=== PATIENT | female | born 1990 | race Caucasian/White ===

== ENCOUNTER 2017-05-07 06:14 | Inpatient (IN) ==
[2017-05-07] MEDS ORDERED: ACETAMINOPHEN 325 MG TABLET PO PRN (07:03)
[2017-05-07] MEDS ORDERED: BUTORPHANOL 2 MG/ML VIAL IV PRN (07:03)
[2017-05-07] MEDS ORDERED: ONDANSETRON 4 MG/2 ML VIAL IV PRN (07:03)
[2017-05-07] MEDS ORDERED: MEPERIDINE 50 MG/1 ML VIAL IV PRN (07:03)
[2017-05-07] MEDS ORDERED: OXYTOCIN/LR 20 UNIT/1,000 ML BAG IV SCH (07:30)
[2017-05-07] MEDS ORDERED: LACTATED RINGERS 1,000 ML IV SCH (07:30)
[2017-05-07 07:40] LABS: Basophils % 0.1 % (0.0-0.8); Eosinophils # 0.1 10*3/uL (0.0-0.87); Eosinophils % 0.5 % (0.00-10.9); Hematocrit 37.1 VOL% (35.7-47.0); Hemoglobin 13.3 GM/DL (12.0-16.0); Immature Granulocytes % 0.8 %; Immature Granulocytes Absolute 0.09 #; Lymphocytes # 1.9 10*3/uL (1.4-4.0); Lymphocytes % 16.7 % (21.3-54.2); Mean Corpuscular HGB Conc 35.8 GM/DL (32-36); Mean Corpuscular Hemoglobin 31 PG (27-34); Mean Corpuscular Volume 86.9 FL (87-102); Mean Platelet Volume 11.5 FL (9.6-12.0); Monocytes # 0.6 10*3/uL (0.11-0.8); Monocytes % 5.2 % (1.7-12.7); Neutrophils # 8.7 10*3/uL (1.4-7.4); Neutrophils % 76.7 % (38.7-73.9); Platelet Count 151 T/CUMM (130-400); Red Blood Count 4.27 MC/CUMM (3.8-5.5); Red Cell Distribution Width 13.8 % (9.3-17.3); White Blood Count 11.3 T/CUMM (4-12)
[2017-05-07 08:11] LABS: Alanine Aminotransferase 16 U/L (13-56); Albumin 2.5 G/DL (3.4-5.0); Alkaline Phosphatase 184 U/L (45-117); Aspartate Amino Transferase 15 U/L (0-37); Bilirubin,Total < 0.39 MG/DL (0.2-1.0); Blood Urea Nitrogen 8 MG/DL (7-18); Calcium 8.8 MG/DL (8.5-10.1); Total Protein 5.5 G/DL (6.4-8.3)
[2017-05-07 08:12] LABS: Glucose 77 MG/DL (74-106); Osmolality,Calculated 273.5 MOS/KG (273-304); Potassium 3.6 MMOL/L (3.5-5.1); Sodium 139 MMOL/L (136-145)
[2017-05-07] MEDS ORDERED: ePHEDrine 50 MG/ML AMP IV PRN (08:18)
[2017-05-07] MEDS ORDERED: FAMOTIDINE 20 MG/2 ML VIAL IV ONE (08:18)
[2017-05-07] MEDS ORDERED: LACTATED RINGERS 1,000 ML IV ONE (08:18)
[2017-05-07] MEDS ORDERED: CITRIC ACID/SODIUM CITRATE 30 ML UDCUP PO ONE (08:18)
[2017-05-07] MEDS ORDERED: hydrOXYzine HCL 25 MG/1 ML VIAL IM PRN (08:19)
[2017-05-07] MEDS ORDERED: PROMETHAZINE 25 MG/1 ML VIAL IM ONE (08:19)
[2017-05-07] MEDS ORDERED: fentaNYL 2 MCG/ROPIV 0.2% EPID 150 ML EPIDURAL SCH (08:19)
[2017-05-07] MEDS ORDERED: diphenhydrAMINE 50 MG/1 ML VIAL IV PRN ×2 (08:19)
[2017-05-07 10:42] LABS: Apearance,Urine CLEAR (Clear); Bilirubin,Urine Negative (Negative); Blood, Urine Negative (Negative); Glucose,Urine (UA) Negative (Negative); Ketones,Urine Negative (Negative); Mucus,Urine Occasional /LPF (Occasional); Nitrite,Urine Negative (Negative); Protein,Urine Negative; RBC,Urine <1 /HPF (0-4); Squamous Epithelial Cell,Urine Occasional /HPF (0-10); Urine Color Yellow (Yellow); Urine Specific Gravity 1.009 (1.001-1.035); Urine Urobilinogen < 2.0 EU/DL (0.2-1.0); WBC,Urine <1 /HPF (0-6)
[2017-05-07] MEDS ORDERED: miSOPROStol 200 MCG TABLET ONE (11:16)
[2017-05-07] MEDS ORDERED: LIDOCAINE 1% 50 ML VIAL ONE (11:16)
[2017-05-07] MEDS ORDERED: METHYLERGONOVINE 0.2 MG/1 ML AMP ONE (11:16)
--- NOTE | 2017-05-07 12:29 | Operative Note ---
Date of procedure: 05/07/17 Pre-op diagnosis: Labor Induction; 39 weeks gestation Post-op diagnosis: other (Vaginal Delivery; 39 weeks gestation) Procedure: Complete at 1110 and pushing began with UCs. viable female infant, MARYLOU position @ 1136, epidural anesthesia. Loose nuchal cord, easily reduced on perineum. Spontaneous cry and resp. Mouth and nose bulb suctioned. Cord clamped and cut. Infant to mother's abd. Nursery RN present attending . Spontaneous placental delivery @ 1138. Pitocin infusion increased to bolus rate. Placenta inspected with 3 vessel cord seen, slight odor observed. To pathology for inspection. Perineum inspected. Vaginal pack placed and 2nd degree left vaginal laceration extending to posterior vaginal introitus and to right side, repaired with 2/0 chromic suture, good hemostasis. 1st degree periurethral laceration repaired with 3/0 chromic suture, good hemostasis. Left periurethral abrasion, no repair required. Vag pack removed, no clots noted. Fundus firm Q U-2, small amount lochis rubra. Mother and baby stable. Apgars 8/9. Anesthesia: epidural Surgeon / Physician: Maricruz Olivo Estimated blood loss: other (200mL) Specimens: other (Placenta to pathology) Condition: stable Disposition: floor Results - Labs CBC & BMP: 05/07/17 07:14 05/07/17 07:14 Lab Results: I have reviewed the past 24 hour labs Discharge Plan - Discharge Medications No Action Multivitamin () [ Vitamin] 1 tablet PO DAILY - Follow Up or Referral - Forms/Instructions
[2017-05-07] MEDS ORDERED: OXYTOCIN/LR 20 UNIT/1,000 ML BAG IV ONE (14:14)
[2017-05-07] MEDS ORDERED: IBUPROFEN 800 MG TABLET PO PRN (15:11)
[2017-05-07] MEDS ORDERED: oxyCODONE/ACETAMINOPHEN 5-325 MG TABLET PO PRN ×2 (15:11)
--- NOTE | 2017-05-07 15:45 | Anesthesia Post-Op ---
Anesthesia Post OP - Post Ansesthetic Evaluation Patient seen in post op: Yes Resp: within normal limits CV: within normal limits Mental: within normal limits Temp: within normal limits Gles-Go-Phhsswfjk: within normal limits Nausea and Vomiting: within normal limits Pain: within normal limits
[2017-05-07] MEDS ORDERED: BENZOCAINE 20%/MENTHOL 0.5% SPRAY 56 GM CAN TOP PRN (20:25)
[2017-05-07] MEDS: DOCUSATE SODIUM 100 MG CAPSULE PO SCH (20:35)
[2017-05-08 06:26] LABS: Basophils % 0.1 % (0.0-0.8); Eosinophils # 0.1 10*3/uL (0.0-0.87); Eosinophils % 0.7 % (0.00-10.9); Hematocrit 37.6 VOL% (35.7-47.0); Hemoglobin 13.3 GM/DL (12.0-16.0); Immature Granulocytes % 0.5 %; Immature Granulocytes Absolute 0.06 #; Lymphocytes # 2.4 10*3/uL (1.4-4.0); Mean Corpuscular HGB Conc 35.4 GM/DL (32-36); Mean Corpuscular Hemoglobin 31 PG (27-34); Mean Corpuscular Volume 87.2 FL (87-102); Mean Platelet Volume 11.3 FL (9.6-12.0); Monocytes # 0.5 10*3/uL (0.11-0.8); Monocytes % 3.9 % (1.7-12.7); Neutrophils # 9.5 10*3/uL (1.4-7.4); Neutrophils % 75.8 % (38.7-73.9); Platelet Count 157 T/CUMM (130-400); Red Blood Count 4.31 MC/CUMM (3.8-5.5); Red Cell Distribution Width 13.8 % (9.3-17.3); White Blood Count 12.5 T/CUMM (4-12)
--- NOTE | 2017-05-08 07:47 | History and Physical Update ---
History and Physical Update - History and Physical H&P was reviewed, the patient examined and there: are no changes in the patients condition since last H&P was completed. - Dictation Physical: refer to scanned H&P - Physical Exam Mental Status: alert and oriented Heart: regular rate and rhythm Lung: clear to auscultation Abdomen: within normal limits Vitals: within normal limits History and Physical Changes: 39 wks for induction. No complications.
--- NOTE | 2017-05-08 07:49 | OB/GYN Progress Note ---
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 Exam SAW OFFBEARER - Constitutional Vitals: Vital Signs Temp Pulse Resp BP Pulse Ox 05/08/17 07:23 97.6 F 92 H 20 119/77 98 05/08/17 04:00 97.6 F 76 18 128/71 97 05/08/17 00:00 97.2 F L 73 18 128/88 99 05/07/17 20:00 98.7 F 76 18 132/81 97 05/07/17 15:50 97.8 F 72 18 118/68 99 05/07/17 08:00 97.6 F 71 18 115/79 General appearance: normal weight, no acute distress - Head Head exam: Present: normal inspection, normocephalic - Eye Eye exam: Present: EOMI - Respiratory Respiratory exam: Present: clear to auscultation bilaterally - Cardiovascular Cardiovascular exam: Present: regular rate and rhythm - GI/Abdominal GI/Abdominal exam: Present: soft (fundus firm, nontender) - Extremities Exam Extremities exam: Present: normal inspection - Neurological Exam Neurological exam: Present: alert, oriented X3 - Psychiatric Psychiatric exam: Present: normal affect, normal mood - Skin Skin exam: Present: normal color, warm Results - Labs CBC & BMP: 05/08/17 05:58 05/07/17 07:14 Lab Results: I have reviewed the past 24 hour labs
[2017-05-08] MEDS: DOCUSATE SODIUM 100 MG CAPSULE PO SCH ×2 (08:28→22:01)
[2017-05-08] MEDS ORDERED: LANOLIN 50% CREAM 0.3 OZ TUBE TOP PRN (20:22)
[2017-05-09 07:44] VITALS: BP 98/58
[2017-05-09] MEDS: DOCUSATE SODIUM 100 MG CAPSULE PO SCH (08:28)
--- NOTE | 2017-05-09 13:17 | Pathology Report from [facility] ---
[facility] – [place] ACCESSION # : [id number] PATIENT NAME : Hiwot Aguilar ORDERING DR : FELICIA DHALIWAL DO CLINICAL HX: Term gestation, induction of labor POST-OP DX: viable female Apgars 8/9 SPECIMEN INFO: Placenta GROSS DESCRIPTION: Received fresh labeled HIWOT AGUILAR & PLACENTA is a 476 gm placenta measuring 17.0 x 13.0 x 3.0 cm. The membranes are banks and translucent. The umbilical cord measures 38.0 cm, contains three vessels and is centrally inserted. The surface is blue blackwood and intact. The maternal surface displays intact red blackwood cotyledons with no abnormalities appreciated upon sectioning. Sections submitted A- membranes and cord, B- and maternal surfaces. DIAGNOSIS FOR HIWOT AGUILAR: PLACENTA, VAGINAL DELIVERY: Mature placenta, 476 grams. Early, acute phlebitis of the umbilical cord vein. Acute chorioamnionitis. Acute subchorionitis. Trivascular umbilical cord 38 cm in length. COLLECTED DATE: 05/08/2017 [facility] REPORT DATE: 05/09/2017 ELECTRONICALLY SIGNED BY: Maricruz Howard M.D. 05/09/2017 - 11:02:59 RICHARD
== END 2017-05-09 12:10 | disposition home or self-care (01) | DRG 560 ==
LOC: N.LDOUT 06:14 → N.LD 06:17 → N.OB 15:09
PROVIDERS: ADMIT Obstetrics & Gynecology; ATTEND Obstetrics & Gynecology